=== PATIENT | male | born 1985 | race Caucasian/White ===

== ENCOUNTER 2022-12-07 07:57 | Outpatient (CLI) | payer OTHER, SELFPAY ==
[2022-12-07 09:58] LABS: Chloride* 104 mmol/L (96-114)
[2022-12-07 09:59] LABS: Albumin* 4.1 g/dL (3.3-5.0); Sodium* 140 mmol/L (135-149)
[2022-12-07 10:00] LABS: Potassium* 3.8 mmol/L (3.6-5.1)
[2022-12-07 10:02] LABS: Alanine Aminotransferase* 38 U/L (4-50); Alkaline Phosphatase* 51 U/L (40-150); Aspartate Amino Transferase* 45 U/L (12-35); Bilirubin Total* 0.8 mg/dL (0.1-1.5); Blood Urea Nitrogen* 8 mg/dL (5-24); Calcium* 9.1 mg/dL (8.4-10.6); Carbon Dioxide* 29 mmol/L (20-32); Cholesterol* 240 mg/dL (90-199); Creatinine* 0.9 mg/dL (0.5-1.5); Estimated Glomerular Filt Rate 114 ml/min; Glucose* 102 mg/dL (60-115); Total Protein* 6.9 g/dL (6.0-8.3); Triglycerides* 161 mg/dL (40-149)
[2022-12-07 10:03] LABS: HDL Cholesterol* 45 mg/dL (>=40); LDL Cholesterol Calculated 163 mg/dL (<100)
== END 2022-12-07 07:58 | disposition home or self-care (01) ==
PROVIDERS: PCP Family Medicine; Visit Provider Family Medicine
DX: E78.5 Hyperlipidemia, unspecified (principal)
CPT/HCPCS: 80053; 80061

== ENCOUNTER 2024-02-01 07:57 | Outpatient (CLI) | payer OTHER, SELFPAY | END 2024-02-01 07:58 | disposition home or self-care (01) | LOC: NFLDREF 02-04 06:37 | PROVIDERS: PCP Family Medicine; Visit Provider Family Medicine | DX: E78.5 Hyperlipidemia, unspecified (principal) | CPT/HCPCS: 80053; 80061 ==

== ENCOUNTER 2024-08-31 13:07 | Emergency (ER) | payer OTHER, SELFPAY ==
[2024-08-31 13:17] VITALS: BP 152/95; PULSE 69; RESP 18; TEMP 36.4; O2SAT 96; BMI 32.5
--- NOTE | 2024-08-31 14:23 | ED_ITS ---
HPI - General Adult General Date Seen: 08/31/24 Chief complaint: Back Injury/Pain Stated complaint: back pain Time Seen by Provider: 08/31/24 13:20 Source: patient Mode of arrival: ambulatory Limitations: no limitations History of Present Illness HPI narrative: Patient is a 38-year-old male here for evaluation of low back pain with some associated radiation into the left leg. Symptoms started yesterday when he was on a walk with his daughter, he does not note any particular traumatic event recently. He has not had any fevers, chills, weight loss, night sweats. He has not noted any weakness or numbness, bowel or bladder changes. Pain is not always present in the leg but when it is it is kind of in the groin down the thigh past the knee. He has a sedentary job, sitting at a computer now. Does not smoke, drinks it sounds like fairly regularly and uses marijuana regularly as well. Denies any history of IV drug use. Related Data Previous Rx's ?Medication ?Instructions ?Recorded hydroxyzine pamoate 25 mg capsule 25 mg PO Q6H PRN anxiety #20 caps 09/13/23 albuterol sulfate 90 mcg/actuation 2 puff inhalation Q4-6H PRN 02/07/24 aerosol inhaler shortness of breath or wheezing #8.5 grams escitalopram oxalate 20 mg tablet 20 mg PO DAILY #90 tabs 02/07/24 metoprolol succinate 100 mg 150 mg (1.5 x 100 mg) PO DAILY 02/07/24 tablet,extended release 24 hr #135 tabs bupropion HCl 150 mg 24 hr tablet, 150 mg PO QAM #90 tabs 05/20/24 extended release dextroamphetamine-amphetamine ER 30 mg PO QAM #30 caps 08/21/24 30 mg 24hr capsule,extend release (Adderall XR) cyclobenzaprine 10 mg tablet 10 mg PO TID PRN muscle spasm #14 08/31/24 tabs prednisone 20 mg tablet 20 mg PO DAILY #18 tabs 08/31/24 Allergies Allergy/AdvReac Type Severity Reaction Status Date / Time No Known Allergies Allergy Unknown Verified 05/20/24 09:15 Review of Systems Status of ROS: Reports: 6 or more systems reviewed and unremarkable except as noted in History and below [facility] Medical History History of alcohol abuse ?F10.11 - Alcohol abuse, 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 Two children ages 10 and 15. 15-year-old is transgender boy dealing with recent depression and suicidal ideation recently hospitalized. No back in school. Work is stable. HABITS: Off alcohol for over 1 year. He does chew tobacco and is trying to quit. Where marijuana use recreational. Sporadic exercise with walking now that the weather is cold. He is working with his on developing an exercise plan. FAMILY HISTORY: Brother with unspecified heart condition. Also aortic aneurysm stable but evaluated frequently. What is your current living situation?: I presently have a place to live Problems where you live: no known problems In the past 12 months, utilities in danger of being shut off: no In past 12 months, lack of transportation kept you from medical appts, meetings, work, or getting things needed for daily living: no In the past 12 mos, have been you worried that your food would run out before you had money to buy more?: never true In the past 12 mos, the food you bought just didn't last and you didn't have money to buy more?: never true Smoking Status: Never smoker Do you use any of these nicotine containing products: Vaping Products How often do you have a drink containing alcohol: 2-3 times a week How many standard drinks containing alcohol do you have on a typical day: 5 or 6 How often do you have six or more drinks on one occasion: Weekly AUDIT-C Alcohol total score: 8 Non-prescribed substance use: denies use and marijuana (any form) How often does anyone, including family, friends and others, physically hurt you : never How often does anyone, including family, friends and others, insult or talk down to you: never How often does anyone, including family, friends and others, threaten you with harm: never How often does anyone, including family, friends and others, scream or curse at you: never Little interest or pleasure in doing things: more than half the days Feeling down, depressed, or hopeless: more than half the days service: No Exam Narrative: Exam Narrative: Vital signs as noted above. In general, an alert, well-appearing patient. Head: Normocephalic, atraumatic. Eyes: Pupils are equal reactive. Extraocular movements are full. Conjunctivae are normal. ENT: Mucous membranes are moist. Neck: Supple without lymphadenopathy. Heart: Regular rate and rhythm. No murmur or rub. Lungs: Clear bilaterally. No increased work of breathing, crackles or wheezes. Abdomen: Soft and nontender. No organomegaly. Back: He has some diffuse lumbar tenderness, no visible trauma. Straight leg raise is negative. Extremities: Well perfused. No edema. No calf tenderness. Pulses intact. Neurologic: Patient is alert and oriented to person and place. Speech is fluent. Face is symmetric. Moves all extremities equally. Affect: Normal. Skin: Warm and dry. Well perfused. Const: Vital Signs, click to edit/add: Vital Signs - 24 hr 08/31/24 13:17 Temperature 97.6 F Pulse Rate [Pulse Oximeter] 69 Respiratory Rate 18 Blood Pressure [Le ft Upper Arm] 152/95 H Pulse Oximetry 96 Oxygen Delivery Me thod Room Air Course Course ED Course: Discussed option of giving something stronger for pain here but he did drive so would like to avoid that. For home I recommend a combination of ibuprofen and Tylenol, Flexeril, can use topical products such as [place] balm. I prescribing prednisone given some suggestion of radiculopathy here. Exam is otherwise reassuring, no red flags to suggest need for immediate imaging. Discussed that if symptoms are not improving with conservative therapy, primary care follow-up would be advised to determine next steps. Return at any time for severe uncontrolled pain, new weakness, fevers or other worsening. Vital Signs Vital signs: Initial Vital Signs Temperature 97.6 F 08/31/24 13:17 Temperature Source Temporal Artery Scan 08/31/24 13:17 Pulse Rate 69 08/31/24 13:17 Pulse Rhythm Regular 08/31/24 13:17 Respiratory Rate 18 08/31/24 13:17 Blood Pressure 152/95 H 08/31/24 13:17 Blood Pressure Mean 114 H 08/31/24 13:17 Blood Pressure Position Sitting 08/31/24 13:17 Pulse Oximetry 96 08/31/24 13:17 Oxygen Delivery Method Room Air 08/31/24 13:17 Vital Signs Temperature 97.6 F 08/31/24 13:17 Pulse Rate 69 08/31/24 13:17 Respiratory Rate 18 08/31/24 13:17 Blood Pressure 152/95 H 08/31/24 13:17 Pulse Oximetry 96 08/31/24 13:17 Oxygen Delivery Method Room Air 08/31/24 13:17 Temperature 97.6 F 08/31/24 13:17 Pulse Rate 69 08/31/24 13:17 Respiratory Rate 18 08/31/24 13:17 Blood Pressure 152/95 H 08/31/24 13:17 Pulse Oximetry 96 08/31/24 13:17 Oxygen Delivery Method Room Air 08/31/24 13:17 Discharge Plan Discharge Clinical Impression: Lumbar radiculopathy Patient Disposition: Home, Self-Care Condition: Stable Instructions: Acute Low Back Pain (ED) Additional Instructions: Ibuprofen 400 mg plus Tylenol 1000 mg 3 times daily with food for the next few days to week. Muscle relaxer as needed. Ice, topical agents such as [place] balm or icy Hot may be helpful as well. Prednisone dose as follows: 3 tablets daily for 3 days then 2 tablets daily for 3 days then 1 tablet daily for 3 days[address] Follow up with Dr. Graham as planned on Sunday. If pain is persistent, imaging in the form of an MRI may be warranted. If at any time you have significant worsening, severe uncontrolled pain, weakness, fevers etcetera return to the ER. Prescriptions: New prednisone 20 mg tablet 20 mg PO DAILY Qty: 18 0RF Rx Instructions: Three tabs daily for 3 days then 2 tabs daily for 3 days then 1 tab daily for 3 days cyclobenzaprine 10 mg tablet 10 mg PO TID PRN (Reason: muscle spasm) Qty: 14 0RF No Action albuterol sulfate 90 mcg/actuation HFA aerosol inhaler 2 puff inhalation Q4-6H PRN (Reason: shortness of breath or wheezing) Qty: 8.5 2RF escitalopram oxalate 20 mg tablet 20 mg PO DAILY Qty: 90 3RF metoprolol succinate 100 mg tablet extended release 24 hr 150 mg PO DAILY Qty: 135 3RF bupropion HCl 150 mg tablet extended release 24 hr 150 mg PO QAM Qty: 90 1RF hydroxyzine pamoate 25 mg capsule 25 mg PO Q6H PRN (Reason: anxiety) Qty: 20 0RF Rx Instructions: for severe anxiety dextroamphetamine-amphetamine [Adderall XR] 30 mg capsule,extended release 24hr 30 mg PO QAM Qty: 30 0RF Follow Up/Referrals: Justin Graham MD [Primary Care Provider] - Stand Alone Forms: [employer] Info Instructions
== END 2024-08-31 13:51 | disposition home or self-care (01) ==
LOC: ED 13:40
PROVIDERS: Emergency Provider Emergency Medicine; PCP Family Medicine
DX: M54.16 Radiculopathy, lumbar region (principal)
CPT/HCPCS: 99283; 99284

== ENCOUNTER 2025-06-04 07:34 | Outpatient (CLI) | payer BC, SELFPAY | END 2025-06-04 07:35 | disposition home or self-care (01) | LOC: NFLDREF 06-08 15:06 | PROVIDERS: PCP Family Medicine; Referring Provider Family Medicine; Visit Provider Family Medicine | DX: E78.5 Hyperlipidemia, unspecified (principal) | CPT/HCPCS: 80053; 80061 ==